=== PATIENT | male | born 1990 | race Caucasian/White ===

== ENCOUNTER → 2021-04-16 | Outpatient (CLI) | payer OTHER ==
--- NOTE | 2021-04-16 08:28 | RAD ---
EXAM: ULTRASOUND ABDOMEN COMPLETE CLINICAL HISTORY: Abnormal stools COMPARISON: None available. TECHNIQUE: Ultrasound of the upper abdomen was performed. FINDINGS: The liver length measures 17.4 cm. The common bile duct measures 1.8 mm in transverse dimension. The visualized pancreas grossly appears unremarkable. Visualized aorta, IVC within normal limits of dimen az. There is some echogenicity identified within the gallbladder likely debris. The right kidney me asures 12.0 x 5.4 0.4 cm the left kidney measures 12.7 x 5.6 x 4.0 cm. The spleen measures 15.6 cm in length. IMPRESSION: 1. Echogenicities identified within the gallbladder likely debris 2. Splenomegaly. Electronically signed by: Tyshawn Simmons MD (04/16/2021 8:26 AM) [id number]
== END ==
LOC: US 07:52
PROVIDERS: ATTEND Physician Assistant
DX: R16.1 Splenomegaly, not elsewhere classified (principal); R19.5 Other fecal abnormalities
CPT/HCPCS: 76700